=== PATIENT | female | born 1990 | race Caucasian/White ===

== ENCOUNTER 2017-04-10 00:31 | Emergency (ER) | payer SELFPAY ==
[~2017-04-10] VITALS: Ht 172.7 cm; Wt 49.9 kg
[2017-04-10 00:47] VITALS: BP 139/100
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
--- NOTE | 2017-04-10 01:05 | NUR ---
DR HENDERSON AT BEDSIDE TO EVAL.
[2017-04-10] MEDS ORDERED: ACETAMINOPHEN 325 MG TABLET PO ONE (01:30)
--- NOTE | 2017-04-10 01:46 | NUR ---
PATIENT WALKED OUT FROM HOSPITAL. NO S/S OF ACUTE DISTRESS.
--- NOTE | 2017-04-10 01:46 | NUR ---
DR HENDERSON IS NOTIFIED.
== END 2017-04-10 01:48 | disposition home or self-care (01) ==
LOC: ER 00:33
DX: S10.91XA Abrasion of unspecified part of neck, initial encounter (principal); T63.301A Toxic effect of unspecified spider venom, accidental (unintentional), initial encounter; Y92.89 Other specified places as the place of occurrence of the external cause; Y93.89 Activity, other specified; Y99.8 Other external cause status
CPT/HCPCS: 99282; A4606; Z7610